=== PATIENT | male | born 1975 | race Caucasian/White ===

== ENCOUNTER 2017-02-20 14:34 | Emergency (ER) | payer SELFPAY ==
[~2017-02-20] VITALS: Ht 172.7 cm; Wt 77.0 kg
[2017-02-20] MEDS ORDERED: SODIUM CHLORIDE 0.9% 1,000 ML IV ONE (14:58)
[2017-02-20] MEDS ORDERED: THIAMINE HCL 100 MG in SODIUM CHLORIDE 0.9% 49 ML IV ONE (15:00)
[2017-02-20 15:44] LABS: CHLORIDE 107 mEq/L (98-107)
[2017-02-20 15:46] LABS: PROTHROMBIN TIME 10.6 sec (9.4-11.6)
[2017-02-20 15:49] LABS: CARBON DIOXIDE 24 mEq/L (21-32); ETHANOL BLOOD 273 mg/dL
[2017-02-20 15:51] LABS: EOSINOPHILS % 2.8 % (0.0-5.0); HEMOGLOBIN. 15.2 g/dL (14.0-18.0); LYMPHOCYTES % 31.3 % (20.0-50.0); MEAN CORPUSCULAR HEMOGLOBIN 30.7 pg (28.0-32.0); MEAN PLATELET VOLUME 9.2 fl (7.4-10.4); MONOCYTES % 7.4 % (2.0-8.0); NEUTROPHILS % 57.5 % (40.0-76.0); PLATELET 250 x1000/uL (130-400); RED BLOOD CELL COUNT 4.95 mill/uL (4.7-6.1); RED CELL DISTRIBUTION WIDTH 13.3 % (11.6-14.6)
[2017-02-20 15:56] LABS: CREATINE KINASE 183 IU/L (39-308)
[2017-02-20 15:57] LABS: TROPONIN I < 0.02 ng/mL (0.00-0.04)
[2017-02-20] MEDS ORDERED: THIAMINE HCL 100MG TABLET PO ONE (16:15)
[2017-02-20 16:46] VITALS: BP 122/68
== END 2017-02-20 17:00 | disposition home or self-care (01) ==
LOC: ER 14:41
DX: F10.129 Alcohol abuse with intoxication, unspecified (principal); Y90.8 Blood alcohol level of 240 mg/100 ml or more; V89.2XXA Person injured in unspecified motor-vehicle accident, traffic, initial encounter; Y93.89 Activity, other specified; Y92.89 Other specified places as the place of occurrence of the external cause
CPT/HCPCS: 36415; 70450; 71010; 80053; 82550; 84443; 84484; 85025; 85610; 93005; 99285; G0482; Z7610; J7030